=== PATIENT | female | born 1985 | race Asian ===

== ENCOUNTER 2021-01-21 17:22 | Emergency (ER) | payer OTHER ==
[2021-01-21] MEDS ORDERED: KETOROLAC 30 MG/ML VIAL IVP STA (18:01)
--- NOTE | 2021-01-21 18:04 | ED Physician Documentation ---
History of Present Illness - Stated complaint Stated Complaint: HEADACHE, RT SIDE &BACK PX - Chief complaint Chief Complaint: Back Pain - History obtained from History obtained from: Patient - History of Present Illness Pain level max: 8 Pain level now: 5 - Additonal information Additional information: Patient is a 35-year-old female who presents to the emergency department with several complaints. The first complaint is of left-sided flank pain. Intermittent for the past month. She states that she started having fever 3 days ago. States T-max of 103. She states that at the pain comes and goes. She is concerned about a potential kidney infection. Is not having any pain or burning with urination. She states that she has had rhinorrhea, congestion and coughing. She has had her Covid vaccination. Denies any possibility of . States she recently finished her menses. Review of Systems Constitutional: reports: Fever, Chills Nose: reports: Rhinorrhea / runny nose, Congestion Throat: reports: Sore throat Respiratory: reports: Cough : denies: Dysuria, Frequency, Hesitancy Skin: denies: Rash Musculoskeletal: denies: Neck pain, Back pain Neurologic: denies: Headache PD PAST MEDICAL HISTORY - Past Medical History Past Medical History: No - Past Surgical History Past Surgical History: No - Present Medications Home Medications: Ambulatory Orders Medication Instructions Recorded Confirmed Cefdinir 300 mg PO BID #28 cap 01/21/21 Meloxicam [Mobic] 7.5 mg PO BID PRN #20 tablet 01/21/21 Ondansetron Odt [Zofran] 4 mg TL Q6H PRN #10 tablet 01/21/21 - Allergies Allergies/Adverse Reactions: Allergies Allergy/AdvReac Type Severity Reaction Status Date / Time phenazopyridine Allergy Hives Verified 01/21/21 17:39 [From Pyridium] - Living Situation Living Arrangement: reports: At home - Social History Does the pt smoke?: No Does the pt have substance abuse?: No PD ED PE NORMAL - Vitals Vital signs reviewed: Yes - General General: Alert and oriented X 3, No acute distress, Well developed/nourished - HEENT HEENT: PERRL, Ears normal, Moist mucous membranes, Pharynx benign - Neck Neck: Supple, no meningeal sign, No adenopathy, Other (Full range of motion without pain) - Cardiac Cardiac: RRR - Respiratory Respiratory: No respiratory distress, Clear bilaterally - Abdomen Abdomen: Normal bowel sounds, Soft, Non distended, Other (Diffusely tender to palpation, seems to have increased tenderness to palpation left lower quadrant. No peritoneal signs) - Back Back: No spinal TTP, Other (Left CVA tenderness) - Derm Derm: Warm and dry - Extremities Extremities: No edema, No calf tenderness / cord - Neuro Neuro: Alert and oriented X 3 - Psych Psych: Normal mood, Normal affect Results - Vitals Vitals: Vital Signs - 24 hr 01/21/21 01/21/21 01/21/21 17:33 17:39 19:15 Temperature 37.0 C 37.0 C Heart Rate 105 H 105 H 101 H Respiratory 14 14 15 Rate Blood Pressure 106/69 106/69 100/71 O2 Saturation 100 100 98 01/21/21 20:31 Temperature 37.0 C Heart Rate 90 Respiratory 16 Rate Blood Pressure 106/72 O2 Saturation 98 Oxygen O2 Source Room air - Labs Labs: Laboratory Tests 01/21/21 01/21/21 01/21/21 17:53 18:25 18:25 WBC 11.3 H RBC 3.94 L Hgb 12.3 Hct 35.1 L MCV 89.1 MCH 31.2 H MCHC 35.0 RDW 11.5 L Plt Count 277 MPV 10.2 Neut # (Auto) 7.5 H Lymph # (Auto) 2.5 [place] # (Auto) 1.2 H Eos # (Auto) 0.0 Baso # (Auto) 0.0 Absolute Nucleated RBC 0.00 Nucleated RBC % 0.0 Sodium 130 L Potassium 3.0 L Chloride 94 L Carbon Dioxide 25 Anion Gap 11.0 BUN 10 Creatinine 0.6 Estimated GFR (MDRD) 115 Glucose 113 H Calcium 8.8 Total Bilirubin 0.7 AST 22 ALT 23 Alkaline Phosphatase 27 L Total Protein 7.8 Albumin 3.5 Globulin 4.3 H Albumin/Globulin Ratio 0.8 L Lipase 29 Urine Color YELLOW Urine Clarity CLEAR Urine pH 6.0 Ur Specific [place] <=1.005 Urine Protein NEGATIVE Urine Glucose (UA) NEGATIVE Urine Ketones NEGATIVE Urine Occult Blood SMALL H Urine Nitrite NEGATIVE Urine Bilirubin NEGATIVE Urine Urobilinogen 0.2 (NORMAL) Ur Leukocyte Esterase TRACE H Urine RBC 6-10 H Urine WBC 6-10 H Ur Squamous Epith Cells FEW Squamous Urine Bacteria Few Ur Microscopic Review INDICATED Urine Culture Comments INDICATED Urine HCG, Qual NEGATIVE - Rads (name of study) CT abd/pelvis Radiology: Final report received, EMP read contemporaneously, See rad report PD MEDICAL DECISION MAKING - ED course Complexity details: reviewed results, re-evaluated patient, considered differential, d/w patient ED course: 35-year-old female presents to the emergency department with what appears to be a pyelonephritis. Given IV Rocephin. Patient is well-appearing, nontoxic. Afebrile. No active vomiting. We will prescribe pain medication, antibiotics for home. Patient will follow up as an outpatient for the right adnexal cyst versus dermoid cyst. Patient counseled regarding signs and symptoms for which I believe and urgent re-evaluation would be necessary. Patient with good understanding of and agreement to plan and is comfortable going home at this time This document was made in part using voice recognition software. While efforts are made to proofread this document, sound alike and grammatical errors may occur. IMPRESSION: 1. Ill-defined low-attenuation focus of decreased enhancement in the superior left renal pole with surrounding perinephric stranding most suggestive of focal pyelonephritis. Recommend interval follow-up to document resolution and exclude presence of underlying mass lesion. 2. Focus of low-attenuation posterior to the right adnexa partially obscured by overlying bowel loops. While this could represent an adnexal cyst, given Hounsfield units of low attenuation suggestive of fat, dermoid cannot be definitively excluded. Pelvic ultrasound on a nonemergent basis is recommended for additional follow-up. Departure - Departure Disposition: 01 Home, Self Care Clinical Impression: Pyelonephritis Ovarian cyst Qualifiers: Laterality: right Qualified Code(s): N83.201 - Unspecified ovarian cyst, right side Condition: Good Instructions: ED Kidney Infec Female Follow-Up: your,doctor in 1 week [Other] Prescriptions: Cefdinir 300 mg PO BID #28 cap Meloxicam [Mobic] 7.5 mg PO BID PRN #20 tablet PRN Reason: Pain Ondansetron Odt [Zofran] 4 mg TL Q6H PRN #10 tablet PRN Reason: Nausea / Vomiting Comments: Your prescriptions were sent to the [facility] pharmacy. You can pick them up tomorrow. Go home and rest tonight. You were given your first dose of antibiotics tonight. Return if you worsen. It is also important that you have an outpatient ultrasound of your ovaries to ensure that there is nothing more serious than a cyst. CT SCAN RESULTS: 1. Ill-defined low-attenuation focus of decreased enhancement in the superior left renal pole with surrounding perinephric stranding most suggestive of focal pyelonephritis. Recommend interval follow-up to document resolution and exclude presence of underlying mass lesion. 2. Focus of low-attenuation posterior to the right adnexa partially obscured by overlying bowel loops. While this could represent an adnexal cyst, given Hounsfield units of low attenuation suggestive of fat, dermoid cannot be definitively excluded. Pelvic ultrasound on a nonemergent basis is recommended for additional follow-up. Discharge Date/Time: 01/21/21 20:31
[2021-01-21 18:09] LABS: BILIRUBIN,URINE NEGATIVE (NEGATIVE); GLUCOSE, URINE (UA) NEGATIVE (NEGATIVE); KETONES,URINE (UA) NEGATIVE (NEGATIVE); LEUKOCYTE ESTERASE, URINE TRACE (NEGATIVE); NITRITE,URINE NEGATIVE (NEGATIVE); OCCULT BLOOD,URINE SMALL (NEGATIVE); PROTEIN,URINE NEGATIVE (NEGATIVE); UROBILINOGEN,URINE 0.2 (NORMAL) E.U./dL (NORMAL)
[2021-01-21 18:10] LABS: CLARITY,URINE CLEAR (CLEAR)
[2021-01-21 18:11] LABS: HCG UR QUAL NEGATIVE
[2021-01-21 18:21] LABS: BACTERIA,URINE Few /HPF (None Seen); SQUAMOUS EPITHELIAL CELL,UR FEW Squamous (<= Few)
[2021-01-21 18:40] LABS: BASOPHILS % (AUTO) 0.4 %; EOSINOPHILS % (AUTO) 0.3 %; HCT - HEMATOCRIT 35.1 % (37.0-47.0); HGB - HEMOGLOBIN 12.3 g/dL (12.0-16.0); LYMPHOCYTES # (AUTO) 2.5 10^3/uL (1.5-3.5); LYMPHOCYTES % (AUTO) 21.9 %; MEAN CORPUSCULAR HEMOGLOBIN 31.2 pg (27.0-31.0); MEAN CORPUSCULAR VOLUME 89.1 fL (81.0-99.0); MEAN PLATELET VOLUME 10.2 fL (7.9-10.8); MONOCYTES # (AUTO) 1.2 10^3/uL (0.0-1.0); MONOCYTES % (AUTO) 10.7 %; NEUTROPHILS # (AUTO) 7.5 10^3/uL (1.5-6.6); NEUTROPHILS % (AUTO) 66.1 %; PLT - PLATELET COUNT 277 10^3/uL (130-450); RED BLOOD COUNT 3.94 10^6/uL (4.20-5.40); RED CELL DISTRIBUTION WIDTH 11.5 % (12.0-15.0); WHITE BLOOD COUNT 11.3 x10^3/uL (4.8-10.8)
[2021-01-21] MEDS ORDERED: IOVERSOL 320 100 ML VIAL IVP ONE ×2 (18:45→20:36)
[2021-01-21 18:51] LABS: ALBUMIN 3.5 g/dL (3.2-5.5); ALBUMIN/GLOBULIN RATIO 0.8 (1.0-2.2); BILIRUBIN,TOTAL 0.7 mg/dL (0.2-1.0); CALCIUM 8.8 mg/dL (8.5-10.3); CREATININE 0.6 mg/dL (0.4-1.0); TOTAL PROTEIN 7.8 g/dL (6.7-8.2)
[2021-01-21] MEDS ORDERED: SODIUM CHLORIDE 0.9% 1,000 ML IV STA (19:04)
--- NOTE | 2021-01-21 19:53 | CT Report ---
PROCEDURE: Abdomen/Pelvis W INDICATIONS: diffuse abd pain, fever CONTRAST: IV CONTRAST: Optiray 320 ml: 90 PO CONTRAST: *NO PO CONTRAST TECHNIQUE: After the administration of IV contrast, 5 mm thick sections acquired from the diaphragms to the symp hysis. 5 mm thick coronal and sagittal reformats were acquired. For radiation dose reduction, the f ollowing was used: automated exposure control, adjustment of mA and/or kV according to patient size. COMPARISON: None. FINDINGS: Image quality: Excellent. ABDOMEN: Lung bases: Lung bases are clear. Heart size is normal. Solid organs: Liver is enlarged. The spleen is normal in size and enhancement. Gallbladder is unrem arkable Biliary system is non dilated. Pancreas enhances normally. No adrenal nodules. Kidneys de monstrate normal size , without hydronephrosis. There is a ill-defined area of low attenuation and d ecreased enhancement within the posterior aspect of the superior left renal pole measuring approximat janette 3.0 cm. Mild adjacent perinephric stranding is present. Peritoneum and bowel: Bowel loops demonstrate normal wall thickness and caliber. No free fluid or a ir. Colonic diverticula are present without associated inflammatory change. Nodes and vessels: No retroperitoneal or mesenteric adenopathy by size criteria. Aorta and inferior vena cava are normal in size. Miscellaneous: No ventral hernias. PELVIS: Genitourinary: Bladder wall thickness is normal. There is an ill-defined focus of low attenuation a long the posterior aspect of the right adnexa, partially obscured by bowel loops. Portions appear to demonstrate fat attenuation. Miscellaneous: No inguinal hernias or adenopathy. Bones: No suspicious bony lesions. No vertebral body compression fractures. IMPRESSION: 1. Ill-defined low-attenuation focus of decreased enhancement in the superior left renal pole with ng rrounding perinephric stranding most suggestive of focal pyelonephritis. Recommend interval follow-up to document resolution and exclude presence of underlying mass lesion. 2. Focus of low-attenuation posterior to the right adnexa partially obscured by overlying bowel loops . While this could represent an adnexal cyst, given Hounsfield units of low attenuation suggestive of fat, dermoid cannot be definitively excluded. Pelvic ultrasound on a nonemergent basis is recommende d for additional follow-up. Reviewed by: Meenakshi Cat MD on 01/21/2021 7:52 PM PDT Approved by: Meenakshi Cat MD on 01/21/2021 7:52 PM PDT Station ID: [id number]
[2021-01-21] MEDS ORDERED: cefTRIAXone 1 GM VIAL IVP STA (20:00)
[2021-01-21 20:33] VITALS: BP 106/72
== END 2021-01-21 20:31 | disposition home or self-care (01) ==
LOC: ED 17:22 → EDBD 17:22 → ED 20:31
DX: N12 Tubulo-interstitial nephritis, not specified as acute or chronic (principal); N83.201 Unspecified ovarian cyst, right side; R05.9 Cough, unspecified; Z20.822 Contact with and (suspected) exposure to COVID-19
CPT/HCPCS: 36415; 74177; 80053; 81001; 81025; 83690; 85025; 87077; 87086; 87181; 87635; 96374; 96375; 99284; Q9967; 81003

== ENCOUNTER 2022-05-16 10:23 | Emergency (ER) | payer OTHER ==
[2022-05-16 11:14] LABS: BILIRUBIN,URINE NEGATIVE (NEGATIVE); GLUCOSE, URINE (UA) NEGATIVE (NEGATIVE); KETONES,URINE (UA) NEGATIVE (NEGATIVE); LEUKOCYTE ESTERASE, URINE NEGATIVE (NEGATIVE); NITRITE,URINE NEGATIVE (NEGATIVE); OCCULT BLOOD,URINE NEGATIVE (NEGATIVE); PROTEIN,URINE NEGATIVE (NEGATIVE); UROBILINOGEN,URINE 0.2 (NORMAL) E.U./dL (NORMAL)
[2022-05-16 11:16] LABS: CLARITY,URINE CLEAR (CLEAR); HCG UR QUAL NEGATIVE
[2022-05-16] MEDS ORDERED: ONDANSETRON 4 MG/2 ML VIAL IVP STA (11:41)
[2022-05-16] MEDS ORDERED: HYDROmorphone 1 MG/ML CARPUJECT IVP STA (11:41)
[2022-05-16] MEDS ORDERED: PANTOPRAZOLE 40 MG VIAL IVP STA (11:41)
--- NOTE | 2022-05-16 11:44 | ED Physician Documentation ---
History of Present Illness - Stated complaint Stated Complaint: ABD PX - Chief complaint Chief Complaint: Abd Pain - Additonal information Additional information: 36-year-old female presents to the emergency department for evaluation of upper abdominal pain that radiates to her lower abdomen. She describes it as sharp and burning. She thought she may have indigestion or heartburn and took Tums without relief. She states that yesterday she had multiple watery stools that were nonbloody. That has resolved today. No fevers. Some nausea but no vomiting. No urinary symptoms. Currently breast-feeding. Takes no prescribed medications. No pertinent past surgical history. States that about a month ago she began taking 200 mg of Motrin once daily to help with uterine cramping after IUD placement Patient is historian. Reliable historian Review of Systems Constitutional: denies: Fever, Chills GI: reports: Abdominal Pain, Nausea, Diarrhea. denies: Vomiting : reports: Reviewed and negative PD PAST MEDICAL HISTORY - Past Surgical History Past Surgical History: No - Present Medications Home Medications: Ambulatory Orders Medication Instructions Recorded Confirmed Cefdinir 300 mg PO BID #28 cap 01/21/21 Meloxicam [Mobic] 7.5 mg PO BID PRN #20 tablet 01/21/21 Ondansetron Odt [Zofran] 4 mg TL Q6H PRN #10 tablet 01/21/21 Metoclopramide [Reglan] 10 mg PO Q6H PRN #8 tablet 05/16/22 - Allergies Allergies/Adverse Reactions: Allergies Allergy/AdvReac Type Severity Reaction Status Date / Time phenazopyridine Allergy Hives Verified 01/31/21 10:30 [From Pyridium] - Social History Does the pt smoke?: No Does the pt have substance abuse?: No PD ED PE NORMAL - General General: Alert and oriented X 3, No acute distress - HEENT HEENT: PERRL - Cardiac Cardiac: RRR, No murmur - Respiratory Respiratory: No respiratory distress, Clear bilaterally - Abdomen Abdomen: Normal bowel sounds, Soft, Non tender (Generalized nonfocal abdominal tenderness though lower abdomen more tender than upper. No guarding or rebound. Nonperitoneal.) - Back Back: No CVA TTP - Derm Derm: Normal color, Warm and dry, No rash - Extremities Extremities: No deformity - Neuro Neuro: Alert and oriented X 3 Eye Opening: Spontaneous Motor: Obeys Commands Verbal: Oriented GCS Score: 15 Results - Vitals Vitals: Vital Signs - 24 hr 05/16/22 05/16/22 05/16/22 10:49 11:34 13:00 Temperature 36.5 C Heart Rate 108 H 102 H 93 Respiratory 18 18 18 Rate Blood Pressure 120/79 106/71 102/75 O2 Saturation 99 98 97 Oxygen O2 Source Room air - Labs Labs: Laboratory Tests 05/16/22 05/16/22 05/16/22 11:00 11:48 11:48 WBC 10.1 RBC 5.31 Hgb 15.7 Hct 47.1 H MCV 88.7 MCH 29.6 MCHC 33.3 RDW 12.6 Plt Count 344 MPV 10.1 Neut # (Auto) 8.7 H Lymph # (Auto) 0.8 L [place] # (Auto) 0.4 Eos # (Auto) 0.1 Baso # (Auto) 0.0 Absolute Nucleated RBC 0.00 Nucleated RBC % 0.0 Sodium 139 Potassium 3.8 Chloride 102 Carbon Dioxide 24 Anion Gap 13.0 BUN 17 Creatinine 0.6 Estimated GFR (MDRD) 114 Glucose 87 Calcium 9.6 Total Bilirubin 1.0 AST 20 ALT 23 Alkaline Phosphatase 54 Total Protein 8.5 H Albumin 4.8 Globulin 3.7 Albumin/Globulin Ratio 1.3 Lipase 38 Urine Color YELLOW Urine Clarity CLEAR Urine pH 6.0 Ur Specific [place] 1.020 Urine Protein NEGATIVE Urine Glucose (UA) NEGATIVE Urine Ketones NEGATIVE Urine Occult Blood NEGATIVE Urine Nitrite NEGATIVE Urine Bilirubin NEGATIVE Urine Urobilinogen 0.2 (NORMAL) Ur Leukocyte Esterase NEGATIVE Ur Microscopic Review NOT INDICATED Urine Culture Comments NOT INDICATED Urine HCG, Qual NEGATIVE - Rads (name of study) CT abd/pel w Radiology: Final report received (Probable small bowel enteritis or ileus. No obstruction. No abscess.) PD Medical Decision Making - ED course Complexity details: reviewed results, re-evaluated patient, considered differential, d/w patient ED course: Well-appearing 36-year-old female presents emergency department for evaluation of generalized abdominal discomfort. She reports that yesterday she had numerous loose watery stools but this morning she began having what she described as severe burning pain in her upper abdomen that radiated to her lower pelvic region. She had some nausea but no vomiting. No fevers. On exam she had some generalized nonperitoneal tenderness. My interpretation of the CBC and electrolytes shows that there is no acute worrisome findings. Her urinalysis shows no findings of infection. Discussed with patient the likely etiology that the cause of her symptoms was likely a gastroenteritis given the nausea and diarrhea. However she stated she never had pain as severe as this and given the radiation to the lower abdomen we did proceed to do a CT of the abdomen to rule out an acute surgical process such as acute appendicitis. The CT showed no findings of bowel obstruction or appendicitis though there is a fair amount of small bowel enteritis and possible early ileus. While here in the emergency department she was administered 0.5 mg of Dilaudid IV with marked improvement in her symptoms. She also received some Zofran and following this was tolerating sips of clear liquids. Once the CT imaging had been resulted patient was then administered Reglan IV as a promotility agent to be used in the setting of mild ileus. I discussed labs and laboratory imaging findings with the patient. She will be discharged home with recommendation for clear liquids for the next 24 to 48 hours. As needed Reglan for nausea and ileus reduction. As symptoms improve she can begin a brat diet. We discussed the usual emergent return precautions as well. Departure - Departure Disposition: 01 Home, Self Care Clinical Impression: Enteritis Condition: Stable Record reviewed to determine appropriate education?: Yes Instructions: ED Gastroenteritis Non Infec Prescriptions: Metoclopramide [Reglan] 10 mg PO Q6H PRN #8 tablet PRN Reason: Nausea / Vomiting Comments: You came to the emergency department today because yesterday you had diarrhea and this morning you began having a lot of pain in your upper abdomen that radiated down. Here in the ER we did do a CBC and electrolytes as well as a urinalysis that showed no worrisome findings. The CT of your abdomen shows that you have most likely developed a small bowel enteritis or a mild ileus. This is the medical term for a gastroenteritis which is usually caused by a virus. This causes nausea and the diarrhea you had yesterday. An ileus is a medical term that can mean your intestines move very slowly. There is nothing on your CT scan today to suggest a bowel obstruction. Over the next 24 to 48 hours I would like you to sip clear liquids only. I have sent a prescription for Reglan, this is a nausea medicine as well as a promotility agent to the [facility] in [place]. You can take this 2-3 times a day for the next few days. I would expect as your nausea gets better and your pain improves they will be able to start eating a more regular diet. However start with bananas, rice, applesauce and toast. If despite this treatment you find that you are having worsening pain, develop any fevers, have uncontrolled vomiting, have black or bloody bowel movements you should return immediately to the ER for second evaluation
[2022-05-16] MEDS ORDERED: iohexoL-300 100 ML VIAL ONE (11:57)
[2022-05-16 12:12] LABS: BASOPHILS % (AUTO) 0.3 %; EOSINOPHILS # (AUTO) 0.1 10^3/uL (0.0-0.7); EOSINOPHILS % (AUTO) 1.3 %; HCT - HEMATOCRIT 47.1 % (37.0-47.0); HGB - HEMOGLOBIN 15.7 g/dL (12.0-16.0); LYMPHOCYTES # (AUTO) 0.8 10^3/uL (1.5-3.5); LYMPHOCYTES % (AUTO) 7.4 %; MEAN CORPUSCULAR HEMOGLOBIN 29.6 pg (27.0-31.0); MEAN CORPUSCULAR HGB CONC 33.3 g/dL (32.0-36.0); MEAN CORPUSCULAR VOLUME 88.7 fL (81.0-99.0); MEAN PLATELET VOLUME 10.1 fL (7.9-10.8); MONOCYTES # (AUTO) 0.4 10^3/uL (0.0-1.0); MONOCYTES % (AUTO) 4.3 %; NEUTROPHILS # (AUTO) 8.7 10^3/uL (1.5-6.6); NEUTROPHILS % (AUTO) 86.5 %; PLT - PLATELET COUNT 344 10^3/uL (130-450); RED BLOOD COUNT 5.31 10^6/uL (4.20-5.40); RED CELL DISTRIBUTION WIDTH 12.6 % (12.0-15.0); WHITE BLOOD COUNT 10.1 x10^3/uL (4.8-10.8)
[2022-05-16 12:28] LABS: ALBUMIN 4.8 g/dL (3.2-5.5); ALBUMIN/GLOBULIN RATIO 1.3 (1.0-2.2); CALCIUM 9.6 mg/dL (8.5-10.3); CREATININE 0.6 mg/dL (0.4-1.0); POTASSIUM 3.8 mmol/L (3.5-5.0); TOTAL PROTEIN 8.5 g/dL (6.7-8.2)
--- NOTE | 2022-05-16 14:19 | CT Report ---
PROCEDURE: ABDOMEN/PELVIS W INDICATIONS: upper abd pain radiating to lower quads CONTRAST: 100ml omni 300 n TECHNIQUE: After the administration of contrast, 5 mm thick sections acquired from the diaphragms to the sym physis. 5 mm thick coronal and sagittal reformats were acquired. For radiation dose reduction, the following was used: automated exposure control, adjustment of mA and/or kV according to patient size . COMPARISON: None. FINDINGS: Lower thorax: The lung bases are clear. Heart size normal. No hiatal hernia. Liver: Normal in size and attenuation. No contour deformity present. Biliary system: No calcified cholelithiasis or pericholecystic inflammation. No evidence of bile du ct dilatation. Pancreas: Unremarkable without mass or inflammation evident. Spleen: Normal in size and density. Adrenals: Normal morphology and density. Reproductive system: Unremarkable as visualized. Urinary system: 3.8 cm fat-containing nodule in the right adnexa consistent dermoid, similar prior. I ntrauterine device noted in the pelvis. Gastrointestinal system: Small bowel wall thickening with enhancement and slight fluid distention con sistent with enteritis or ileus. No abscess or obstruction. Appendix: No findings to suggest acute appendicitis. Peritoneal spaces: No mesenteric or retroperitoneal adenopathy. No free air. No free fluid. Vasculature: The IVC, aorta and iliac vasculature are unremarkable. Musculoskeletal: Normal bone mineralization. No acute fractures. Abdominal wall intact without kristin dence of ventral or inguinal hernias. IMPRESSION: 1. Probable small bowel enteritis or ileus. No obstruction. No abscess. 2. Stable right adnexal dermoid cyst. Reviewed by: Robbie Santana MD on 05/16/2022 1:17 PM [facility] Approved by: Robbie Santana MD on 05/16/2022 1:17 PM [facility] Station ID: [id number]
[2022-05-16] MEDS ORDERED: METOCLOPRAMIDE 10 MG/2 ML VIAL IVP STA (14:23)
[2022-05-16 14:34] VITALS: BP 102/79
[2022-05-16] MEDS ORDERED: iohexoL-300 100 ML VIAL IVP ONE (16:15)
== END 2022-05-16 14:38 | disposition home or self-care (01) ==
LOC: ED 10:23
DX: K52.9 Noninfective gastroenteritis and colitis, unspecified (principal)
CPT/HCPCS: 36415; 74177; 80053; 81003; 81025; 83690; 85025; 96374; 96375; 99284; 99285; J1170; J2765; Q9967; 81001; 87086

== ENCOUNTER 2022-11-02 08:58 | Emergency (ER) | payer OTHER ==
[2022-11-02 09:26] VITALS: BP 110/75
--- NOTE | 2022-11-02 09:41 | ED Physician Documentation ---
History of Present Illness - Stated complaint Stated Complaint: RT CHEST PX - Chief complaint Chief Complaint: General - History obtained from History obtained from: Patient (37-year-old woman with history of mastitis has had mild pain of the right breast for the last few days but more severe today. No fevers or chills. She is breast-feeding.) PD PAST MEDICAL HISTORY - Past Surgical History Past Surgical History: No - Present Medications Home Medications: Ambulatory Orders Medication Instructions Recorded Confirmed Cefdinir 300 mg PO BID #28 cap 01/21/21 Meloxicam [Mobic] 7.5 mg PO BID PRN #20 tablet 01/21/21 Ondansetron Odt [Zofran] 4 mg TL Q6H PRN #10 tablet 01/21/21 Metoclopramide [Reglan] 10 mg PO Q6H PRN #8 tablet 05/16/22 cephALEXin [Keflex] 500 mg PO Q6H #28 cap 11/02/22 - Allergies Allergies/Adverse Reactions: Allergies Allergy/AdvReac Type Severity Reaction Status Date / Time phenazopyridine Allergy Hives Verified 01/31/21 10:30 [From Pyridium] - Social History Does the pt smoke?: No Does the pt have substance abuse?: No PD ED PE NORMAL - Vitals Vital signs reviewed: Yes - General General: Alert and oriented X 3, No acute distress - Extremities Extremities: Other (Exam done with Alisha MASCORRO present and chaperoning. Some mild tenderness around 7:00. No overt redness or fluctuance or mass.) - Neuro Neuro: Alert and oriented X 3, Normal speech Results - Vitals Vitals: Vital Signs - 24 hr 11/02/22 09:14 Temperature 36.7 C Heart Rate 65 Respiratory 18 Rate Blood Pressure 110/75 O2 Saturation 99 Oxygen O2 Source Room air Departure - Departure Disposition: Home, Self Care Clinical Impression: Mastitis Condition: Good Record reviewed to determine appropriate education?: Yes Instructions: ED Breast Infec Prescriptions: cephALEXin [Keflex] 500 mg PO Q6H #28 cap Comments: Call your doctor to arrange a follow-up appointment, make the next available appointment. In the interim, return anytime if worse or if new symptoms develop. Forms: PCP List
[2022-11-02] MEDS ORDERED: cephALEXin 250 MG CAPSULE PO STA (09:46)
== END 2022-11-02 10:06 | disposition home or self-care (01) ==
LOC: ED 08:58
DX: N61.0 Mastitis without abscess (principal)
CPT/HCPCS: 99282; 99283; A9270